=== PATIENT | female | born 1955 ===

== ENCOUNTER 2018-03-14 07:50 | Outpatient (CLI) | payer OTHER ==
[~2018-03-14] VITALS: Ht 152.4 cm; Wt 70.3 kg
== END 2018-03-14 08:10 | disposition home or self-care (01) ==
LOC: OFIC 805 07:50
DX: H90.72 Mixed conductive and sensorineural hearing loss, unilateral, left ear, with unrestricted hearing on the contralateral side (principal); H61.23 Impacted cerumen, bilateral; H93.12 Tinnitus, left ear

== ENCOUNTER 2018-05-02 07:38 | Outpatient (CLI) | payer OTHER ==
[~2018-05-02] VITALS: Ht 152.4 cm; Wt 68.0 kg
== END 2018-05-02 08:00 | disposition home or self-care (01) ==
LOC: OFIC 805 07:38
DX: H90.12 Conductive hearing loss, unilateral, left ear, with unrestricted hearing on the contralateral side (principal); H61.23 Impacted cerumen, bilateral; H93.13 Tinnitus, bilateral